=== PATIENT | female | born 1955 | race African-American/Black ===

== ENCOUNTER 2025-09-25 15:12 | Emergency (ER) | payer MEDICARE, MEDICAID ==
[~2025-09-25] VITALS: Ht 165.1 cm; Wt 90.0 kg
[2025-09-25 15:14] VITALS: TEMP 98.2; O2SAT 98
[2025-09-25 16:02] LABS: BASOPHILS % 0.3 % (0.0-2.0); EOSINOPHILS % 2.8 % (0.0-5.0); HEMATOCRIT. 34.5 % (36.0-48.0); HEMOGLOBIN. 11.2 g/dL (12.0-16.0); LYMPHOCYTES % 19.9 % (20.0-50.0); MEAN PLATELET VOLUME 7.3 fl (7.4-10.4); MONOCYTES % 6.4 % (2.0-8.0); NEUTROPHILS % 70.6 % (40.0-76.0); PLATELET 327 x1000/uL (130-400); RED BLOOD CELL COUNT 4.02 mill/uL (4.2-5.4); RED CELL DISTRIBUTION WIDTH 15.1 % (11.6-14.6)
[2025-09-25 16:17] LABS: CREATININE 0.7 mg/dL (0.6-1.0); UREA NITROGEN BLOOD < 5 mg/dL (9-23)
[2025-09-25 16:18] LABS: TROPONIN I HIGH SENSITIVITY 6 ng/L (3.0-34)
[2025-09-25 16:19] LABS: ASPARTATE AMINOTRANSFERASE 11 IU/L (<34); BILIRUBIN DIRECT < 0.1 mg/dL (<=3.0); BILIRUBIN TOTAL 0.3 mg/dL (0.1-1.0); PROTEIN TOTAL 7.4 g/dL (6.0-8.3)
[2025-09-25] MEDS: SODIUM CHLORIDE 0.9% 1,000 ML IV ONE (16:54)
[2025-09-25] MEDS: MECLIZINE 25MG TABLET PO ONE (17:05)
[2025-09-25] MEDS: ONDANSETRON HCL 4MG/2ML INJ IV ONE (17:05)
[2025-09-25 18:08] LABS: CLARITY URINE CLEAR (CLEAR); COLOR URINE YELLOW (YELLOW); GLUCOSE URINE NEGATIVE (NEGATIVE); KETONES URINE NEGATIVE (NEGATIVE); LEUKOCYTE ESTERASE URINE NEGATIVE (NEGATIVE); NITRITE URINE NEGATIVE (NEGATIVE); OCCULT BLOOD URINE NEGATIVE (NEGATIVE); PH URINE 7.0 (4.5-8.0); PROTEIN URINE NEGATIVE (NEGATIVE); SPECIFIC GRAVITY URINE 1.007 (1.005-1.030); UROBILINOGEN URINE 0.2 E.U./dL (0.2-1.0)
[2025-09-25] MEDS ORDERED: ONDA4TAB50 MT (18:29)
[2025-09-25] MEDS ORDERED: MECL-299 MT (18:29)
[2025-09-25 19:21] VITALS: BP 147/80; PULSE 85; RESP 18; O2SAT 99
== END 2025-09-25 19:21 | disposition home or self-care (01) ==
LOC: ER 15:12
DX: R42 Dizziness and giddiness (principal)
CPT/HCPCS: 99285; 96374; 70450; 96361; 71045; 80076; 80048; 81003; 85025; 84484; 36415; 93005; J8597; J2405; J7030